=== PATIENT | male | born 1950 | race Caucasian/White ===

== ENCOUNTER → 2016-09-18 | Outpatient (CLI) | payer BC ==
[~2016-09-18] MED LIST: ATEN50TA PO; FERR-18 PO; FOLI-49 PO; LISI20TA11 PO; [UNRECOGNIZED DRUG - CODE] PO
--- NOTE | 2016-09-18 14:56 | RADRPT ---
PROCEDURE: XR Knees. CLINICAL INDICATION: Bilateral knee pain. TECHNIQUE: Total of six views. Frontal, oblique, and lateral views of both knees. COMPARISON: Right knee radiographs dated 10/27/2012. FINDINGS: There are bilateral total knee arthroplasties which appears satisfactory. There is no fracture, dis location, or loosening. The soft tissues are normal. There is no joint effusion. There is no lytic or blastic lesion. IMPRESSION: 1. Satisfactory postoperative appearance of both knees. RPTAT: QQ .Armando Winston MD, MD Date Time Electronically viewed and signed by .Armando Winston MD, MD on 09/18/2016 14:56 .R/
--- NOTE | 2016-09-18 14:58 | RADRPT ---
PROCEDURE: XR Pelvis and Hips. CLINICAL INDICATION: Pelvic pain. Bilateral hip pain. TECHNIQUE: Five views. Frontal pelvis. Frontal and lateral right hip. Frontal and lateral left hip. COMPARISON: No prior studies are available for comparison. FINDINGS: There is no fracture or dislocation. The soft tissues are normal. There are degenerative changes of both hips with osteophytes noted. There is no joint space narrowi ng or deformity. There is no lytic or blastic lesion. Surgical clips are present in the right side of the abdomen and pelvis. IMPRESSION: 1. Mild degenerative changes of both hips. 2. Prior right sided abdomen and pelvis surgery. RPTAT: QQ .Armando Winston MD, MD Date Time Electronically viewed and signed by .Armando Winston MD, MD on 09/18/2016 14:57 .R/
== END | disposition home or self-care (01) ==
LOC: HKI 09:00
PROVIDERS: ATTEND Orthopaedic Surgery
DX: M51.36 Other intervertebral disc degeneration, lumbar region (principal); M54.16 Radiculopathy, lumbar region; Z96.653 Presence of artificial knee joint, bilateral
CPT/HCPCS: 73523; 73562; G0463

== ENCOUNTER 2018-09-03 05:22 | Inpatient (IN) | payer MEDICARE, BC ==
[2018-09-03] VITALS (55 sets, daily range): BP systolic 101–159; BP diastolic 51–78; PULSE 52–101; RESP 12–37; Ht 172.7 cm; Wt 100.5 kg
[~2018-09-03] VITALS: Ht 172.7 cm; Wt 100.5 kg
[~2018-09-03 05:22] MED LIST changes: +LISI-471 PO; -LISI20TA11 PO
--- NOTE | 2018-09-03 05:41 | HPN ---
Date/Time of Note Date/Time of Note DATE: 09/03/18 TIME: 05:41 Interval H&P Admission Note Pt. seen H&P reviewed: No system changes SHAREE LEONARDO MD Sep 03, 2018 05:41
--- NOTE | 2018-09-03 05:44 | OPR ---
Date/Time of Note Date/Time of Note DATE: 09/03/18 TIME: 05:42 Operative Report Procedure Date: Sep 03, 2018 Preoperative Diagnosis Left shoulder secondary arthritis Postoperative Diagnosis 1. Left shoulder secondary arthritis 2. Left shoulder acromioclavicular joint arthritis 3. Left shoulder massive, unrepairable rotator cuff tear Operation/Procedure Performed 1. Left reverse total shoulder replacement 2. Left open distal clavicle excision 3. Left shoulder injection of PRP Surgeon see signature line Cathodic Protection Technician Avery Pulido DO Anesthesia Type: general Estimated Blood Loss: 10 - 50 ml's Transfusion none Specimen None Grafts/Implants See op note Complications none Pt Condition Post Procedure: stable Disposition: PACU Procedure Description COMBAT ENGINEER SURGEON: Avery Pulido DO was asked to be present for this case at my request. Assistance was necessary as a result of the highly technical nature of this operation. When performing an open total shoulder replacement, it is critical to have a trained teacher assistant who is an expert in handling the extremity and assisting the surgeon in tasks such as manipulation of the arm, protection of the neurovascular structures and positioning the implants. This assistance cannot be performed by a electronic test technician, as it is considered an integral part of the procedure and the teacher assistant should be compensated for their time. PROCEDURE IN DETAIL: Following the administration of general anesthesia supplemented with a peripheral nerve block for postoperative pain control, the patient was examined under anesthesia. Examination of the right shoulder reveals significant stiffness with limited forward flexion and abduction and severe subacromial crepitus. Prior to sterile prep and drape the forearm was then prepped and 60 cc of blood were pulled from the vein. The blood was then given to the insurance claims representative to create a PRP infusion. The patient was then placed in the beach chair position. Sterile prep and drape was then undertaken. An extended deltopectoral incision was then carried through the interval exposing the conjoined tendon and retracting it medially. The superior aspect was then exposed and the acromioclavicular joint identified and incision was made in the AC joint exposing severe arthritic changes the distal clavicle was then skeletonized and resected for a distance of 10 mm. A good decompression was confirmed. The AC capsule was then closed. Attention was then directed back to the glenohumeral joint and the deltopectoral interval. The subscapularis was noted to be partially disrupted superiorly. Severe arthritic changes were noted with very large peripheral osteophytes. The superior rotator cuff was torn and retracted. The biceps tendon was chronically torn and retracted. A humeral head osteotomy was then created in the appropriate degree of version and inclination. The humerus was retracted and the glenoid was exposed. Peripheral osteophytes were removed and a complete capsulectomy performed. The central canal of the glenoid was then entered and prepared for a standard Depuy baseplate. A standard Depuy baseplate was then applied with four peripheral screws and solid fixation. A 38 mm glenosphere was then applied, with solid fixation. The humerus was then reamed and prepared for a 14 mm humeral component with a standard metaphyseal component and a 9 mm liner. Prior to insertion of the actual components, the canal was irrigated and the PRP solution which was prepared was then infiltrated into the humeral canal the actual components were implanted with solid fixation. The arm was taken through full range of motion with no evident instability. The joint was then thoroughly irrigated, the deep tissues were approximated using #1 suture followed by closure of the deep layer using 2-0 Monocryl. The skin was closed using 4-0 Monocryl suture, and a Prenio dressing. An Ultrasling was then applied. The patient was awakened and transported to the recovery room in stable condition. Estimated blood loss for this procedure was 75 cc. Radiographs will be obtained in the recovery room. SHAREE LEONARDO MD Sep 03, 2018 05:44
[2018-09-03] MEDS ORDERED: DEXAMETHASONE 1 MG TAB PO SCH (06:00)
[2018-09-03] MEDS ORDERED: TRANEXAMIC ACID 1,000 MG in DEXTROSE 5% 100 ML IVPB SCH (06:00)
[2018-09-03] MEDS ORDERED: CEFAZOLIN 2 GM/50 ML (PMX) 50 ML IVPB SCH (06:00)
[2018-09-03] MEDS ORDERED: GABAPENTIN 300 MG CAP PO SCH ×2 (06:00→21:00)
[2018-09-03] MEDS ORDERED: BUPIVACAINE 0.5% (SDV) 30 ML, morphine SULFATE (PF) 8 MG, EPINEPHrine 0.3 MG, KETOROLAC... IRR SCH ×7 (06:00)
[2018-09-03] MEDS ORDERED: THROMBIN 5000 UNIT VIAL ONE (06:46)
[2018-09-03] MEDS ORDERED: POLYMYXIN/BACITRACIN 1L IRRIG ONE (06:47)
[2018-09-03] MEDS ORDERED: CA CHLORIDE (GM) 10% 10 ML INJ ONE (06:47)
[2018-09-03] MEDS ORDERED: ATEN50TA PO (06:56)
[2018-09-03] MEDS ORDERED: LISI-471 PO (06:56)
--- NOTE | 2018-09-03 06:57 | PREAC ---
Date/Time of Note Date/Time of Note DATE: 09/03/18 TIME: 06:55 Anesthesia Eval and Record Evaluation Time Pre-Procedure Interview DATE: 09/03/18 TIME: 06:55 Age 68 Sex male NPO: 8 hrs Preoperative diagnosis left shoulder oa Planned procedure left total shoulder arthroplasty Past Medical History Past Medical History: Includes Cardio: HTN, Dyslipidemia GI: Obesity Surgery & Anesthesia Issues No known issue Meds Anticoagulation: No Beta Shawn within 24 hr: Yes (this AM) Reported Medications Ferrous Sulfate (Iron) 325 Mg Tablet, 325 MG PO DAILY 01/29/12 Folic Acid* (Folic Acid*) 1 Mg Tablet, 1 MG PO BID 01/29/12 Ascorbic Acid (Vitamin C) 500 Mg Tab.chew, 500 MG PO BID 01/29/12 Lisinopril* (Lisinopril*) 20 Mg Tablet, 20 MG PO DAILY 01/29/12 Atenolol* (Atenolol*) 50 Mg Tablet, 50 MG PO DAILY 01/29/12 Current Medications Cefazolin Sodium/ Dextrose 50 ml @ 100 mls/hr PRE-OP IVPB ; Start 09/03/18 at 06:00; Stop 09/03/18 at 16:00 Tranexamic Acid 1000 mg/Dextrose 110 ml @ 200 mls/hr Pre-op IVPB ; Start 09/03/18 at 06:00; Stop 09/03/18 at 16:00 Bupivacaine HCl/ Morphine Sulfate/ Epinephrine/ Ketorolac Tromethamine/ Clonidine/Sodium Chloride/ Vancomycin HCl INTRA-OP IRR ; Start 09/03/18 at 06:00; Stop 09/03/18 at 16:00 Dexamethasone (Decadron) 2 mg PREOP PO Last administered on 09/03/18at 06:04; Admin Dose 2 MG; Start 09/03/18 at 06:00; Stop 09/03/18 at 16:00 Gabapentin (Neurontin) 300 mg ONCE PO Last administered on 09/03/18at 06:04; Admin Dose 300 MG; Start 09/03/18 at 06:00; Stop 09/03/18 at 16:00 Meds reviewed: Yes Allergies Coded Allergies: morphine (Verified Allergy, Mild, nausea, 09/03/18) iodine (Verified Allergy, Unknown, HIVES, 09/03/18) Uncoded Allergies: IODINE DYE (Allergy, Unknown, HIVES, 09/03/18) Allergies Reviewed: Yes Labs/Studies Labs Reviewed: Reviewed by anesthesiologist test: N/A Studies: ECG (sinus marni), CXR (NAPD) Pre-procedure Exam Last vitals Vital Signs Date Temp Pulse Resp B/P (MAP) Pulse Ox O2 O2 Flow FiO2 Time Delivery Rate 09/03/18 98.8 70 18 138/75 95 Room Air 06:13 (96) Airway: Adequate mouth opening, Adequate thyromental dist Mallampati: Mallampati II Teeth: Normal Lung: Normal Heart: Normal ASA Physical Status ASA physical status: 2 Emergency: None Planned Anesthetic General/MAC: ETT Nerve block: Brachial plexus (left) Planned Pain Management Single shot nerve block, Parenteral pain med, Local by surgeon Pre-operative Attestations Prior to commencing anesthesia and surgery, the patient was re-evaluated, there was verification of: *The patient's identity *The results of appropriate recent lab work and preoperative vital signs *The above evaluation not changing prior to induction *Anesthetic plan, risk benefits, alternative and complications discussed with patient/family; questions answered; patient/family understands, accepts and wishes to proceed. Abraham Urbina M.D. Sep 03, 2018 06:57
[2018-09-03] MEDS ORDERED: IPRATROPIUM (NEB) 0.5 MG/2.5 ML AMP HHN PRN (07:00)
[2018-09-03] MEDS ORDERED: SUGAMMADEX SODIUM 200 MG/2 ML VIAL IV ONE (07:00)
[2018-09-03] MEDS ORDERED: ALBUTEROL 0.083% (NEB) 2.5 MG/3 ML AMP HHN PRN (07:00)
[2018-09-03] MEDS ORDERED: PROPOFOL 20 ML ONE (07:00)
[2018-09-03] MEDS ORDERED: SUCCINYLCHOLINE CHLORIDE 100 MG/5 ML SYG IV ONE (07:00)
[2018-09-03] MEDS ORDERED: TRIMETHOBENZAMIDE 100 MG/ML VIAL IM PRN (07:00)
[2018-09-03] MEDS ORDERED: METOCLOPRAMIDE 10 MG INJ ONE (07:00)
[2018-09-03] MEDS ORDERED: MEPERIDINE 25 MG INJ IV PRN (07:00)
[2018-09-03] MEDS ORDERED: EPHEDrine SULFATE 50 MG/5 ML SYG IV PRN (07:00)
[2018-09-03] MEDS ORDERED: ONDANSETRON 4 MG INJ ONE (07:00)
[2018-09-03] MEDS ORDERED: ROCURONIUM 50 MG INJ ONE (07:00)
[2018-09-03] MEDS ORDERED: DEXAMETHASONE 4 MG/ML 5 ML INJ ONE (07:00)
[2018-09-03] MEDS ORDERED: MIDAZOLAM 1 MG/ML 2 ML INJ IV PRN (07:00)
[2018-09-03] MEDS ORDERED: DIPHENHYDRAMINE 50 MG INJ IV PRN ×2 (07:00→09:00)
[2018-09-03] MEDS ORDERED: ONDANSETRON 4 MG INJ IV PRN ×2 (07:00→09:00)
[2018-09-03] MEDS ORDERED: MIDAZOLAM 1 MG/ML 2 ML INJ ONE (07:00)
[2018-09-03] MEDS ORDERED: DESFLURANE 15 MIN ONE (07:00)
[2018-09-03] MEDS ORDERED: LABETALOL HCL 20MG INJ IV PRN (07:00)
[2018-09-03] MEDS ORDERED: FENTAnyl 50 MCG/ML VIAL IV PRN ×3 (07:00)
[2018-09-03] MEDS ORDERED: hydrALAzine 20 MG INJ IV PRN (07:00)
[2018-09-03] MEDS ORDERED: ROPIVACAINE 0.5 % 30 ML VIAL ONE (07:00)
[2018-09-03] MEDS ORDERED: GLYCOPYRROLATE 0.4 MG INJ ONE (07:00)
[2018-09-03] MEDS ORDERED: CEFAZOLIN 1 GM INJ ONE (07:00)
[2018-09-03] MEDS ORDERED: HYDROmorphONE 1 MG/5 ML IV SYRINGE IV PRN ×3 (07:00)
[2018-09-03] MEDS ORDERED: NEOSTIGMINE 3 MG/3 ML SYRINGE ONE (07:00)
[2018-09-03] MEDS ORDERED: FENTAnyl 50 MCG/ML VIAL ONE (07:00)
[2018-09-03] MEDS ORDERED: TRIAMCINOLONE ACET 40 MG/ML INJ ONE (07:11)
--- NOTE | 2018-09-03 08:56 | PAC ---
Date/Time of Note Date/Time of Note DATE: 09/03/18 TIME: 08:55 Post-Anesthesia Notes Post-Anesthesia Note Last documented vital signs Vital Signs Date Temp Pulse Resp B/P (MAP) Pulse Ox O2 O2 Flow FiO2 Time Delivery Rate 09/03/18 98.8 70 18 138/75 95 Room Air 08:55 (96) Activity: WNL Respiratory function: WNL Cardiovascular function: WNL Mental status: Baseline Pain reasonably controlled: Yes Hydration appropriate: Yes Nausea/Vomiting absent: Yes Abraham Urbina M.D. Sep 03, 2018 08:56
[2018-09-03] MEDS ORDERED: LOPERAMIDE 2 MG CAP PO PRN (09:00)
[2018-09-03] MEDS ORDERED: ZOLPIDEM 5 MG TAB PO PRN (09:00)
[2018-09-03] MEDS ORDERED: TRANEXAMIC ACID 1,000 MG in SOD CHLORIDE 0.9% 100 ML IVPB SCH (09:00)
[2018-09-03] MEDS ORDERED: MAGNESIUM HYDROXIDE 30ML CUP PO PRN (09:00)
[2018-09-03] MEDS ORDERED: KETOROLAC 15 MG INJ IV PRN (09:00)
[2018-09-03] MEDS ORDERED: NACL 0.9% 3 ML SYG IV SCH (09:00)
[2018-09-03] MEDS ORDERED: HYDROmorphONE 1 MG/ML SYG IV PRN (09:00)
[2018-09-03] MEDS ORDERED: oxyCODONE 5 MG TAB PO PRN ×3 (09:00)
--- NOTE | 2018-09-03 09:00 | NUR ---
pacu PT FROM OR ROOM AIR NO C/O PAIN NO RESP DISTRESS LT SHOULDER INCISION WITH DERMOBAND SITE CLEAR HAS IMMOBILIZER IN PLACE X RAY OF LT SHOULDER WAS DONE PER ORDER MEDS GIVEN PER ORDER
[2018-09-03] MEDS: CEFAZOLIN 1 GM/50 ML (PMX) 50 ML IVPB SCH ×2 (09:12→17:04)
--- NOTE | 2018-09-03 09:50 | NUR ---
PACU PT AWAKE ALERT ROOM AIR NO RESP DISTRESS NO C/O PAIN MEDS GIVEN PER ORDER RT HAND 20 LULY IV SITE CLEAR VS STABLE
--- NOTE | 2018-09-03 10:47 | PDOCDIS ---
Discharge Instructions DIAGNOSIS Discharge Diagnosis History rotator cuff tear arthropathy CONDITION [id number] Patient Condition: [id number] Good HOME CARE INSTRUCTIONS: [id number] Diet Instructions: [id number] Regular ACTIVITY: [id number] Activity Restrictions: [id number] Rest between Activity Keep Limb Elevated [id number] Bathing Restrictions: [id number] Shower FOLLOW UP/APPOINTMENTS Follow-up Plan 2 weeks SCHOOL/WORK RELEASE May return to School/Work with: With Restrictions School/Work Release Comment: 5 pound tabletop usage for 6 weeks SHAREE LEONARDO MD Sep 03, 2018 10:47
--- NOTE | 2018-09-03 11:47 | NUR ---
PACU PT AWAKE ALERT ORIENTED VS STABLE NO RESP DISTRESS IV SITE 20 LULY SITE NAYANA REPORT GIVEN TO ISABELLE MOSQUEDA PT TRANSFERED TO ROOM 410B Addendum: 09/03/18 at 1618 by RENEE GAINES RN LT SHOULDER DSSG WITH DERMOBAND SITE CLEAR HAS IMMOBILIZER IN PLACE FINGERS ON LT HAND ROTATING EQUIPMENT SPECIALIST TOUCH AND MOVES
[2018-09-03] MEDS: ATENOLOL 50 MG TAB PO SCH (12:55)
[2018-09-03] MEDS: LISINOPRIL 20 MG TAB PO SCH (12:56)
--- NOTE | 2018-09-03 13:00 | NUR ---
IN FROM PACU FULLY AWAKE,FULL ASSESSMENT DONE.INSTRUCTED USE OF CALL LIGHT AND OOB WITH ASSISTANCE FROM STAFF.
[2018-09-03] MEDS: SENNA/DOCUSATE NA (8.6MG/50MG) TAB PO SCH ×2 (13:27→20:53)
[2018-09-03] MEDS: ACETAMINOPHEN 500 MG TAB PO SCH ×2 (13:27→18:00)
[2018-09-03] MEDS: DEXAMETHASONE 2 MG TAB PO SCH ×2 (13:27→17:38)
--- NOTE | 2018-09-03 13:42 | NUR ---
PATIENT SITED UP AT THE EDGE OF THE BED FOR LUNCH.PAIN REASSESSED 0/10.
--- NOTE | 2018-09-03 15:22 | NUR ---
ROUNDED WITH PATIENT PAIN 0/10,DENIES ANY DISCOMFORTS.
--- NOTE | 2018-09-03 18:16 | NUR ---
PAIN SCALED 0/10,STILL WITH NUMBNESS ON SHOULDER INCISION AREA.AMBULATING WITHOUT ASSISTIVE DEVICE.INSTRUCTED PATIENT ABOUT ULTRASLING USE AND POSITIONING ARM WITH PILLOW.PT TO CONTINUE PLAN OF CARE ORDERED.
[2018-09-04] MEDS: DEXAMETHASONE 2 MG TAB PO SCH ×2 (01:01→06:12)
[2018-09-04] MEDS: CEFAZOLIN 1 GM/50 ML (PMX) 50 ML IVPB SCH (01:01)
[2018-09-04 02:00] VITALS: BP_SYST 128; BP_SYST 173; BP_DIAS 78; BP_DIAS 79; PULSE 63; PULSE 83; RESP 18
[2018-09-04 03:40] VITALS: BP 190/91; PULSE 81
[2018-09-04 04:26] VITALS: BP 192/93; PULSE 57
[2018-09-04 06:00] VITALS: BP 166/75; PULSE 61
[2018-09-04] MEDS: ACETAMINOPHEN 500 MG TAB PO SCH ×2 (06:13)
[2018-09-04 07:07] VITALS: BP 158/69; PULSE 79
[2018-09-04] MEDS: LISINOPRIL 20 MG TAB PO SCH (07:07)
[2018-09-04] MEDS: ATENOLOL 50 MG TAB PO SCH (07:08)
--- NOTE | 2018-09-04 07:15 | NUR ---
OT EVAL: Pt is a 68 year old male s/p Left Open reverse total shoulder replacement. PLOF: Pt lives with in a 2 story home. Pt was independent with ADL's prior to surgery. CLOF: RN cleared pt for OT services. Pt received supine in bed and agreeable to tx. Pt AOX4, stable vitals and stated 0/10 pain. OTR reviewed ROM restrictions (keep arm where you can see it, no extreme extension and overhead motions), HEP and application and wear use of immobilizer sling. Pt proceeded to perform UB/LB dressing, h/g and functional mob independently. Pt is independent with ADL's, and demonstrates good understanding of precautions and HEP. No further skilled OT warranted. D/C OT
--- NOTE | 2018-09-04 07:17 | PN ---
Date/Time of Note Date/Time of Note DATE: 09/04/18 TIME: 07:10 Subjective Patient is a little constipated, will order MOM. BP a little high, will take BP meds now. Feels well, we will discharge today after PT. Objective Vitals Vital Signs Date Temp Pulse Resp B/P (MAP) Pulse Ox O2 O2 Flow FiO2 Time Delivery Rate 09/04/18 61 166/75 06:00 (105) 09/04/18 97.7 18 94 02:00 09/03/18 Room Air 14:48 Intake and Output 09/03/18 09/03/18 09/04/18 1515:00 23:00 07:00 IntakeIntake Total 2000 ml 450 ml OutputOutput Total 50 ml BalanceBalance 1950 ml 450 ml AAOx3. Sitting comfortably in NAD with sling. No drainage from wound and no erythema/edema. Neuro intact to light touch, able to move fingers/wrist freely. Medications Medications Current Medications Atenolol (Tenormin) 50 mg DAILY PO Last administered on 09/04/18at 07:08; Admin Dose 50 MG; Start 09/03/18 at 09:00 Lisinopril (Zestril) 20 mg DAILY PO Last administered on 09/04/18at 07:07; Admin Dose 20 MG; Start 09/03/18 at 09:00 Senna/Docusate Sodium (Senokot-S) 1 tab BID PO Last administered on 09/03/18at 20:53; Admin Dose 1 TAB; Start 09/03/18 at 09:00 Simethicone (Mylicon) 80 mg TID PRN PO .GAS Last administered on 09/03/18at 23:01; Admin Dose 80 MG; Start 09/03/18 at 09:00 Magnesium Hydroxide (Milk Of Mag) 30 ml BID PRN PO .CONSTIPATION; Start 09/03/18 at 09:00 Loperamide HCl (Imodium Cap) 2 mg Q6H PRN PO .DIARRHEA; Start 09/03/18 at 09:00 Gabapentin (Neurontin) 300 mg HS PO Last administered on 09/03/18at 20:53; Admin Dose 300 MG; Start 09/03/18 at 21:00 Acetaminophen (Tylenol Tab) 500 mg Q6 PO Last administered on 09/04/18at 06:13; Admin Dose 500 MG; Start 09/03/18 at 12:00 Oxycodone HCl (Roxicodone) 15 mg Q4H PRN PO .PAIN; Start 09/03/18 at 09:00 Oxycodone HCl (Roxicodone) 10 mg Q4H PRN PO .PAIN Last administered on 09/03/18at 23:10; Admin Dose 10 MG; Start 09/03/18 at 09:00 Oxycodone HCl (Roxicodone) 5 mg Q4H PRN PO .PAIN; Start 09/03/18 at 09:00 Hydromorphone HCl (Dilaudid) 1 mg Q4H PRN IV .BREAKTHROUGH PAIN; Start 09/03/18 at 09:00 Ketorolac Tromethamine (Toradol) 15 mg Q6H PRN IV .PAIN Last administered on 09/04/18at 01:09; Admin Dose 15 MG; Start 09/03/18 at 09:00 Ondansetron HCl (Zofran Inj) 4 mg Q6H PRN IV NAUSEA/VOMITING; Start 09/03/18 at 09:00 Diphenhydramine HCl (Benadryl) 25 mg Q6H PRN IV .PRURITUS; Start 09/03/18 at 09:00 Zolpidem Tartrate (Ambien) 10 mg HS PRN PO .INSOMNIA; Start 09/03/18 at 09:00 IV Flush (NS 3 ml) 3 ml per protocol IV ; Start 09/03/18 at 09:00 VTE Prophylaxis Risk score (from Nsg)>0 risk: 7 SCD applied (from Nsg): No SCD contraindication: low risk/ambulating Lines/Catheters IV Catheter Type: Peripheral IV [place] in Place: JARROD Sanchez PA-C Sep 04, 2018 07:17
--- NOTE | 2018-09-04 07:44 | NUR ---
Nurse Note: 0340 BP was 190/91, HR 81 and called doctor Aleisha Mendez and doctor Travis Tejada was covering but doctor Mallory does not had privilaged in this hospital and he could not give any orders, He told me to wait for doctor Aleisha to come in morning. Call doctor as chain of comand Rene x2 twice, left messaged and not call back and nursing customer records division supervisor was awared. Recheck BP 0420 192/73, and nursing customer records division supervisor said that she will call doctor Catrachito as chain of comand and not call back. Recheck Bp at 6am 166/75. Around 7 am nursing customer records division supervisor stated that she talked to doctor Billie and doctor Billie stated to call doctor Jayce. Nurse called doctor Jayce and he stated to give AM BP meds. BP recheck at 0707 158/69 and AM BP was given. Charge nurse Soco is awared. Report was given to morning nurse. End of shift Note: AOX4.OOB independently with supervision. Given oxycodone and toradol for pain prn. DIESEL ENGINE MECHANIC APPRENTICE Eric Knox saw patient at 7 am and was notified about patient BP. Safety precautions maintained. Call light within reach.
[2018-09-04] MEDS: SENNA/DOCUSATE NA (8.6MG/50MG) TAB PO SCH (08:14)
--- NOTE | 2018-09-04 08:30 | NUR ---
CLEARED FOR DC HOME BY MD AND OT
--- NOTE | 2018-09-04 09:50 | NUR ---
DC INSTRUCTIONS GIVEN TO PATIENT .INSTRUCTED ON PAIN CONTROL,INCISION CARE,ACTIVITY,FFUP APPT.PTY VERBALIZES UNDERSTANDING.
--- NOTE | 2018-09-07 16:18 | DS ---
Date/Time of Note Date/Time of Note DATE: 09/07/18 TIME: 16:18 Discharge Summary Admission/Discharge Info Admit Date/Time Sep 03, 2018 at 05:22 Discharge Date/Time Sep 04, 2018 at 09:55 Discharge Diagnosis History rotator cuff tear arthropathy Patient Condition: Good Hospital Course Surgery, then PT in am and then D/c home Home Meds Reported Medications Lisinopril* (Lisinopril*) 20 Mg Tablet, 20 MG PO DAILY, #30 TAB 09/03/18 Atenolol* (Atenolol*) 50 Mg Tablet, 50 MG PO DAILY, #30 TAB 09/03/18 Discontinued Reported Medications Ferrous Sulfate (Iron) 325 Mg Tablet, 325 MG PO DAILY 01/29/12 Folic Acid* (Folic Acid*) 1 Mg Tablet, 1 MG PO BID 01/29/12 Ascorbic Acid (Vitamin C) 500 Mg Tab.chew, 500 MG PO BID 01/29/12 Lisinopril* (Lisinopril*) 20 Mg Tablet, 20 MG PO DAILY 01/29/12 Atenolol* (Atenolol*) 50 Mg Tablet, 50 MG PO DAILY 01/29/12 Follow-up Plan 2 weeks Primary Care Provider MD MALISSA Weldon CARLOS A MD Sep 07, 2018 16:18
== END 2018-09-04 09:55 | disposition home or self-care (01) | DRG 483 ==
LOC: REC 05:22 → MS1 11:50
PROVIDERS: ADMIT Orthopaedic Surgery; ATTEND Orthopaedic Surgery
PROC: 0PBB0ZZ Excision of Left Clavicle, Open Approach (ICD-10-PCS; 2018-09-03)
PROC: 0RRK00Z Replacement of Left Shoulder Joint with Reverse Ball and Socket Synthetic Substitute, Open Approach (ICD-10-PCS; principal; 2018-09-03 07:00)
DX: M19.012 Primary osteoarthritis, left shoulder (principal); M75.102 Unspecified rotator cuff tear or rupture of left shoulder, not specified as traumatic; I10 Essential (primary) hypertension; E78.5 Hyperlipidemia, unspecified; K21.9 Gastro-esophageal reflux disease without esophagitis; M51.9 Unspecified thoracic, thoracolumbar and lumbosacral intervertebral disc disorder
CPT/HCPCS: 73030; 86999; 88304; 88311; 97166; C1776; J0171; J0690; J0735; J1100; J1885; J2250; J2274; J2405; J2710; J2765; J2795; J3010; J3370